=== PATIENT | female | born 1980 | race African-American/Black ===

== ENCOUNTER 2021-12-12 13:49 | Outpatient (CLI) | payer BC, SELFPAY ==
--- NOTE | ~2021-12-12 | US_ITS ---
EXAMINATION:US venous doppler LE RT INDICATION:Right lower extremity pain TECHNIQUE: Multiple grayscale, color flow and Doppler images of the right lower extremity deep venous systems were obtained and reviewed. COMPARISON:No prior studies for comparison. FINDINGS: The common femoral, superficial femoral and popliteal veins demonstrate normal respiratory variation, augmentation and compressibility. Color flow is also seen within the posterior tibial, pe roneal, greater saphenous and profunda veins. IMPRESSION: 1: No lower extremity deep venous thrombosis. Reviewed, dictated and finalized at location B.
== END 2021-12-12 13:50 | disposition home or self-care (01) ==
PROVIDERS: PCP Nurse Practitioner Family; Visit Provider Nurse Practitioner Family
DX: M79.661 Pain in right lower leg (principal)
CPT/HCPCS: 93971

== ENCOUNTER 2024-04-06 13:30 | Emergency (ER) | payer SELFPAY ==
[2024-04-06 13:32] VITALS: BP 113/84; PULSE 83; RESP 16; TEMP 36.8; O2SAT 100
--- NOTE | 2024-04-06 17:39 | ED.ABDPAIN ---
HPI - Abdominal Pain General Chief Complaint: Abdominal Pain Stated Complaint: R side pain since 0300 Time Seen by Provider: 04/06/24 17:39 Focused HPI: This is a 43 year old female that presents to the ER for right sided mid/low abdominal pain. Reports the pain has worsened since this morning. Denies fever, vomiting, dysuria, hematuria, or diarrhea. GENERAL: Well-appearing, well-nourished, and in no acute distress. HEAD: Normocephalic, atraumatic. CHEST: Clear to auscultation. ?No respiratory distress. HEART: Regular rate and rhythm.? NEURO: ?Alert and oriented x3. Patient screened in triage and initial orders placed.? ?Additional care and disposition to be based upon?diagnostic testing and treatment. Related Data Allergies Allergy/AdvReac Type Severity Reaction Status Date / Time No Known Allergies Allergy Verified 04/06/24 13:31 Course Vital Signs Vital signs: Vital Signs Temperature 98.3 F 04/06/24 13:32 Pulse Rate 83 04/06/24 13:32 Respiratory Rate 16 04/06/24 13:32 Blood Pressure 113/84 04/06/24 13:32 Pulse Oximetry 100 04/06/24 13:32 Oxygen Delivery Room Air 04/06/24 13:32 Temperature 98.3 F 04/06/24 13:32 Pulse Rate 83 04/06/24 13:32 Respiratory Rate 16 04/06/24 13:32 Blood Pressure 113/84 04/06/24 13:32 Pulse Oximetry 100 04/06/24 13:32 Oxygen Delivery Room Air 04/06/24 13:32 MDM - Abdominal Pain MDM Narrative Medical decision making narrative: Patient eloped after medical screening exam and before any further evaluation or management Discharge Plan Discharge Clinical Impression: Right sided abdominal pain Patient Disposition: Elopement After Seen by Prov Condition: Stable Instructions: Antibiotic Form Follow-up/Referrals: Sushil,JOCELIN Begum [Primary Care Provider] -
== END 2024-04-06 18:23 | disposition left against medical advice (07) ==
PROVIDERS: Emergency Provider Physician Assistant; PCP Nurse Practitioner Family
DX: R10.30 Lower abdominal pain, unspecified (principal)
CPT/HCPCS: 99281